=== PATIENT | female | born 1970 | race Caucasian/White ===

== ENCOUNTER 2018-11-05 09:34 | Emergency (ER) | payer OTHER ==
[~2018-11-05] VITALS: Ht 172.7 cm; Wt 86.2 kg
[~2018-11-05 09:34] MED LIST: ACETAMINOPHEN-1 EAC1 PO; AMBIEN 10 MG TA10 MG PO; AMBIEN 5 MG TABL5 M1 PO; CEPHALEXIN 500500 M3 PO; CLONAZEPAM1 MG PO; IBUPROFEN 600600 M1 PO; IBUPROFEN 800800 M1 PO; IMITREX100 MG PO; KEPPRA 500 MG500 M1; KLONOPIN2 MG PO; MOBIC15 MG PO; NOHOMEMEDICATIONS; NORCO 5-325 TA1 EACH PO; PERCOCET 10-321 EACH PO; PERCOCET 5-3251 EACH PO; POTASSIUM99 M1 PO; PREMPHASE 0.621 EAC1 PO; PROPRANOLOL 1010 MG; TOPAMAX 25 MG T25 M1 PO; TRAZODONE 150150 M1 PO; VITAMIN D1000 UNI1 PO; XANAX 0.5 MG0.5 MG; XANAX1 MG PO; ZOLOFT50 MG PO
[2018-11-05] MEDS ORDERED: LEXAPRO20 MG PO (09:58)
[2018-11-05] MEDS ORDERED: CLONAZEPAM 1 MG1 M1 PO (09:58)
[2018-11-05] MEDS ORDERED: NORCO 5-325 TA1 EAC1 PO (10:27)
[2018-11-05] MEDS ORDERED: CYCLOBENZAPRINE5 MG PO (10:27)
[2018-11-05] MEDS ORDERED: TORADOL 10 MG T10 MG PO (10:27)
[2018-11-05 11:27] VITALS: BP 147/77
== END 2018-11-05 11:29 | disposition home or self-care (01) ==
LOC: M.ERS 09:34
DX: M54.5 Low back pain (principal); Z90.710 Acquired absence of both cervix and uterus

== ENCOUNTER 2020-06-19 19:52 | Emergency (ER) | payer OTHER ==
[~2020-06-19] VITALS: Ht 172.7 cm; Wt 90.7 kg
[~2020-06-19 19:52] MED LIST changes: +CLONAZEPAM 1 MG1 M1 PO; +CYCLOBENZAPRINE5 MG PO; +LEXAPRO20 MG PO; +NORCO 5-325 TA1 EAC1 PO; +TORADOL 10 MG T10 MG PO
[2020-06-19] MEDS ORDERED: TOPROL XL50 MG PO (19:58)
[2020-06-19] MEDS ORDERED: AMITRIPTYLINE H25 M4 PO (19:58)
[2020-06-19 20:43] LABS: ABSOLUTE BASOPHILS 0.2 thou/uL (0.0-0.2); ABSOLUTE EOSINOPHILS 0.3 thou/uL (0.0-0.7); ABSOLUTE LYMPHOCYTES 3.4 thou/uL (0.8-5.3); ABSOLUTE MONOCYTES 0.8 thou/uL (0.0-1.2); ABSOLUTE NEUTROPHILS 4.1 thou/uL (1.6-8.1); BASOPHILS 2.5 %; EOSINOPHILS 2.9 %; HEMATOCRIT 39.8 % (37.0-47.0); LYMPHOCYTES 38.5 %; MCH 28.5 pg (26.0-34.0); MCHC 32.6 g/dL (28.0-37.0); MCV 87.2 fL (80.0-100.0); MONOCYTES 8.8 %; MPV 7.4 fl. (7.2-11.1); NUCLEATED RBCS 0 /100WBC; PLATELET COUNT* 255 thou/uL (150-400); POLYS 47.3 %; RBC 4.56 mil/uL (4.20-5.00); RDW-CV 14.1 % (10.5-14.5); WBC 8.7 thou/uL (4.0-11.0)
[2020-06-19 20:48] LABS: CALCIUM 8.8 mg/dL (8.5-10.1); POTASSIUM 3.5 mmol/L (3.5-5.1)
[2020-06-19 20:54] LABS: ALBUMIN 3.8 g/dL (3.4-5.0); TOTAL BILIRUBIN 0.3 mg/dL (<0.1-1.0); TOTAL PROTEIN 7.2 g/dL (6.4-8.2)
[2020-06-19 20:56] LABS: APTT 23.5 Seconds (25.0-31.3); INR 0.9
[2020-06-19] MEDS ORDERED: CARAFATE 1 GM TA1 GM PO (23:33)
[2020-06-19] MEDS ORDERED: ZOFRAN ODT4 MG PO (23:33)
[2020-06-19 23:43] VITALS: BP 131/60
--- NOTE | 2020-06-20 14:14 | EKG ---
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
== END 2020-06-19 23:43 | disposition home or self-care (01) ==
LOC: M.ERS 19:52
PROVIDERS: Personal Emergency Response Attendant
DX: R10.11 Right upper quadrant pain (principal); R10.13 Epigastric pain; R07.89 Other chest pain; Z20.822 Contact with and (suspected) exposure to COVID-19; Z90.710 Acquired absence of both cervix and uterus; Z98.51 Tubal ligation status

== ENCOUNTER 2020-10-21 09:52 | Inpatient (IN) | payer OTHER ==
[~2020-10-21] VITALS: Ht 170.2 cm; Wt 95.3 kg
[~2020-10-21 09:52] MED LIST changes: +AMITRIPTYLINE H25 M4 PO; +CARAFATE 1 GM TA1 GM PO; +TOPROL XL50 MG PO; +ZOFRAN ODT4 MG PO
[2020-10-21 09:57] VITALS: BP 122/48
[2020-10-21] MEDS ORDERED: LEXAPRO20 MG PO (10:01)
[2020-10-21 10:24] LABS: HEMATOCRIT 41.5 % (37.0-47.0); HEMOGLOBIN 13.9 gm/dL (12.0-15.0); MCH 28.7 pg (26.0-34.0); MCHC 33.4 g/dL (28.0-37.0); MCV 85.8 fL (80.0-100.0); MPV 7.5 fl. (7.2-11.1); NUCLEATED RBCS 0 /100WBC; PLATELET COUNT* 268 thou/uL (150-400); RBC 4.84 mil/uL (4.20-5.00); RDW-CV 14.4 % (10.5-14.5); WBC 9.2 thou/uL (4.0-11.0)
[2020-10-21 10:34] LABS: CALCIUM 8.4 mg/dL (8.5-10.1); POTASSIUM 3.3 mmol/L (3.5-5.1)
[2020-10-21 10:44] LABS: ABSOLUTE EOSINOPHILS 0.1 thou/uL (0.0-0.7); ABSOLUTE LYMPHOCYTES 1.5 thou/uL (0.8-5.3); ABSOLUTE MONOCYTES 0.6 thou/uL (0.0-1.2); PLATELET ESTIMATE ADEQUATE
[2020-10-21 10:45] LABS: ALBUMIN 3.3 g/dL (3.4-5.0); TOTAL BILIRUBIN 0.7 mg/dL (<0.1-1.0); TOTAL PROTEIN 7.3 g/dL (6.4-8.2)
[2020-10-21 14:44] VITALS: BP 122/63
[2020-10-21 18:42] VITALS: BP 128/68
--- NOTE | 2020-10-21 18:56 | NUR ---
[place] (PARENTS) [phone] NORA BARLOW (SISTER) [phone] KAIT KIRKPATRICK (FRIEND) [phone] ANY OF THESE PEOPLE CAN RECEIVE PATIENT INFORMATION
--- NOTE | 2020-10-21 19:12 | NUR ---
PT GIVEN DINNER TRAY AND GIVEN INPATIENT BED.
[2020-10-21 22:04] LABS: BE -2.3 mmol/L (-2 to +3); PCO2 34.6 mmHg (35.0-45.0); PO2 61.5 mmHg (75.0-100.0); pH 7.412 (7.340-7.450)
[2020-10-21 22:40] VITALS: BP 145/71
[2020-10-22 04:14] VITALS: BP 160/91
--- NOTE | 2020-10-22 05:03 | NUR ---
PT ADMITTED TO FLOOR BY CART FROM ED APPROX 0000. SHE HAS BEEN COVID + SEVERAL DAYS AND WAS NOT GETTING BETTER SO SHE CAME TO ED. PT IS ON 15L HFNC WITH LABORED BREATHING AND OCCASIONAL GASPS. SHE IS VERY ANXIOUS AND WAS GIVEN ATIVAN IN ED. PT ANSWERED ALL INTAKE QUESTIONS WITHOUT ISSUE AND SEEMED TO CALM DOWN A BIT. LUNGS ARE DIMINISHED THROUGHOUT WITH REPORTED PRODUCTIVE COUGH. PT STATES SHE HAS COLITIS AND HAS HAD DIARRHEA RECENTLY BUT ISNT SURE IF IT IS FROM COVID OR HER NORMAL COLITIS, SHE REPORTS 2 BMs SINCE ADMISSION TODAY. PT SKIN HAS MULTIPLE SCABS IN VARIOUS DEGREES OF HEALING ON ARMS AND LEGS. THEY ARE SMALL AND ROUND IN SHAPE. PT REPORTED HEADACHE 9/10 FOR WHICH SHE WAS GIVEN TYLENOL. PT DID CALL ME TO BEDSIDE TO INQUIRE IF SHE WAS TO BE GETTING INFUSIONS THAT SHE WAS UNDER THE IMPRESSION SHE WAS TO GET Q4 HR. SHE STATES SHE SPOKE WITH A DR IN ED THAT TOLD HER SHE WOULD BE GETTING IVERMECTIN THIS PM. I EXPLAINED THAT SHE WOULD SEE A DR TOMORROW THAT WOULD ORDER MEDS FOR HER STAY AND THAT TONIGHT SHE ONLY HAD A VERY FEW MEDS AND THAT SHE HAD SOME DAILY MEDS IN THE ED THAT WERE ONCE DAILY. SHE VOICED UNDERSTANDING. PT GOT TO BSC WITH SOME DESAT BUT QUICKLY RECOVERED ONCE BACK IN BED. CALL LIGHT WITHIN REACH FOR PT SAFETY
[2020-10-22 05:58] LABS: HEMATOCRIT 40.3 % (37.0-47.0); HEMOGLOBIN 13.3 gm/dL (12.0-15.0); MCH 28.4 pg (26.0-34.0); MCHC 33.1 g/dL (28.0-37.0); MCV 85.6 fL (80.0-100.0); MPV 7.7 fl. (7.2-11.1); RBC 4.7 mil/uL (4.20-5.00); RDW-CV 14.4 % (10.5-14.5)
[2020-10-22 06:21] LABS: ALBUMIN 3.2 g/dL (3.4-5.0); CREATININE 0.8 mg/dL (0.6-1.3); MAGNESIUM 2.5 mg/dL (1.8-2.4); POTASSIUM 3.7 mmol/L (3.5-5.1); TOTAL BILIRUBIN 0.5 mg/dL (<0.1-1.0); TOTAL PROTEIN 7.4 g/dL (6.4-8.2)
[2020-10-22 08:00] VITALS: BP 140/87
--- NOTE | 2020-10-22 09:00 | EKG ---
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
[2020-10-22 12:30] VITALS: BP 125/73
[2020-10-22 15:30] VITALS: BP 148/78
[2020-10-22 21:30] VITALS: BP 124/94
[2020-10-23] VITALS: BP 117/72
[2020-10-23 04:00] VITALS: BP 133/70
--- NOTE | 2020-10-23 04:45 | NUR ---
PT AO X4 STILL HAVING ISSUE WITH HEADACHE EVEN WITH HOME MEDS AND IBUPROFEN ADMINISTERED. LUNGS MOVING MORE AIR TODAY AND OXYGEN DOWN TO 11L HFNC. PT DENIES COUGH AT THIS TIME. ABD OBESE, ROUND AND SOFT WITH PT REPORTING NORMAL STOOLS FROM YESTERDAY. PT UP TO C ADLIB, SKIN HAS SCABS ON ARMS AND LEGS. CALL LIGHT IN REACH FOR SAFETY.
[2020-10-23 05:35] LABS: HEMATOCRIT 41.1 % (37.0-47.0); HEMOGLOBIN 13.4 gm/dL (12.0-15.0); MCH 28.3 pg (26.0-34.0); MCHC 32.6 g/dL (28.0-37.0); MCV 86.6 fL (80.0-100.0); MPV 7.6 fl. (7.2-11.1); RBC 4.75 mil/uL (4.20-5.00); RDW-CV 14.6 % (10.5-14.5); WBC 11.7 thou/uL (4.0-11.0)
[2020-10-23 05:56] LABS: ALBUMIN 3.3 g/dL (3.4-5.0); CALCIUM 8.7 mg/dL (8.5-10.1); CREATININE 0.8 mg/dL (0.6-1.3); POTASSIUM 3.5 mmol/L (3.5-5.1); TOTAL BILIRUBIN 0.5 mg/dL (<0.1-1.0); TOTAL PROTEIN 7.4 g/dL (6.4-8.2)
--- NOTE | 2020-10-23 10:43 | EKG ---
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1970 Requested By: Adonis Wang Order Number: [id number] MD: Beau Campuzano Measurements Intervals [place] Rate: 96 P: 64 ME: 148 QRS: 11 QRSD: 125 T: 8 QT: 408 QTc: 516 Interpretive Statements Sinus rhythm Nonspecific intraventricular conduction delay Borderline repolarization abnormality Baseline wander in lead(s) V1,V2 Compared to ECG 10/21/2020 09:59:14 no change Electronically Signed On 10-23-2020 10:43:00 CDT by Beau Campuzano [email or web address] <ELECTRONICALLY SIGNED> By: Beau Campuzano MD, FACC 10/23/20 1043 28 28 Baeu Campuzano MD, [facility] /EPI
[2020-10-23 12:00] VITALS: BP 118/70
--- NOTE | 2020-10-23 14:36 | NUR ---
Covid positive. CM spoke with Pt's sister via phone. Pt resides at home, Pt's 8 year old grandson resides with her. Per sister, they suspect that grandson is also covid positive, d/t his symptoms, but he was not tested. Neither are vaccinated. Per sister, family is taking care of grandson while Pt is in the hospital. Pt is independent. No DME. No hx of HH or SNF. Pt is patient pay, Med Assist to assess for [facility]. Pt on 10L, wean. Anticipate Pt will be in the hospital for a few days.
[2020-10-23 18:36] VITALS: BP 120/57
--- NOTE | 2020-10-23 19:49 | NUR ---
patient had a good day today. continues to have headache. doing well otherwise. continue to have o2 on gato flow nc. patient tolerates well.
[2020-10-24 00:51] VITALS: BP 117/63
[2020-10-24 04:33] VITALS: BP 126/63
--- NOTE | 2020-10-24 05:18 | NUR ---
PT AO X4 LYING IN BED, OFFGOING NURSE REPORTS PT WAS UP TO CHAIR MOST OF DAY. PT IS IN GOOD SPIRITS, REPORTING CONTINUED HEADACHE THAT HASNT BEEN RELIEVED WITH KLONOPIN OR IBUPROFEN. LUNGS CTA/DIM WITH OCCASIONAL DRY COUGH ON 11L NFNC. PT IS NSR, GOOD APPETITE. SHE DID HAVE A BRIEF PERIOD OF CONFUSION AFTER FALLING ASLEEP AND WAKING UP, SHE TURNED IN BED FROM PRONING AND WAS STATING SHE COULDNT WAKE HER GRANDSON WHO LIVES WITH HER. SHE ORIENTED EASILY AND HAD NO FURTHER PROBLEM. CALL LIGHT IN REACH FOR PT SAFETY
[2020-10-24 07:25] VITALS: BP 127/64
[2020-10-24 08:54] LABS: CALCIUM 8.4 mg/dL (8.5-10.1); CREATININE 0.8 mg/dL (0.6-1.3)
[2020-10-24 11:17] VITALS: BP 120/57
[2020-10-24 12:00] VITALS: BP 114/71
[2020-10-24] MEDS ORDERED: DOXYCYCLINE 10100 MG PO (13:03)
[2020-10-24] MEDS ORDERED: PROAIR HFA8.5 GM INH (13:03)
[2020-10-24] MEDS ORDERED: PROTONIX40 M4 PO (13:03)
[2020-10-24] MEDS ORDERED: DEXAMETHASONE1 MG PO (13:03)
[2020-10-24 13:40] VITALS: BP 114/71
--- NOTE | 2020-10-24 15:24 | NUR ---
PT GIVE DISCHARGE INFORMATION, CARE NOTES, AND PRESCRIPTIONS. IV REMOVED. HEART MONITOR REMOVED. O2 TANK GIVEN TO PATIENT. PT BELONGINGS GATHERED. HOURLY ROUNDING COMPLETED. PT LEFT VIA WHEELCHAIR WITH NURSING STAFF TO HOME TO [facility] FOR 10 DAYS POST 10/21/20.
== END 2020-10-24 15:30 | disposition home or self-care (01) | DRG 177 ==
LOC: M.ERS 09:52 → M.TBA-ER 10:24 → M.ORTHSURG 10:24
PROVIDERS: Emergency Medicine; Family Medicine; ADMIT Internal Medicine; ATTEND Internal Medicine
DX: U07.1 COVID-19 (principal); J96.01 Acute respiratory failure with hypoxia; J12.82 Pneumonia due to coronavirus disease 2019; E66.01 Morbid (severe) obesity due to excess calories; I10 Essential (primary) hypertension; B17.9 Acute viral hepatitis, unspecified; Z90.710 Acquired absence of both cervix and uterus; Z82.49 Family history of ischemic heart disease and other diseases of the circulatory system; Z68.32 Body mass index [BMI] 32.0-32.9, adult

== ENCOUNTER 2020-11-04 16:28 | Emergency (ER) | payer OTHER ==
[~2020-11-04 16:28] MED LIST changes: +DEXAMETHASONE1 MG PO; +DOXYCYCLINE 10100 MG PO; +PROAIR HFA8.5 GM INH; +PROTONIX40 M4 PO
== END 2020-11-04 18:52 | disposition left against medical advice (07) ==
LOC: M.ERS 16:28
DX: Z00.8 Encounter for other general examination (principal); Z53.21 Procedure and treatment not carried out due to patient leaving prior to being seen by health care provider